=== PATIENT | female | born 1975 | race Caucasian/White ===

== ENCOUNTER 2022-03-16 06:20 | Outpatient (CLI) | payer OTHER ==
[~2022-03-16] VITALS: Ht 162.6 cm; Wt 59.9 kg
[~2022-03-16 06:20] MED LIST: ALPR1TAB2 PO; ASP81TEC PO; CARI350T PO; CRS350T PO; DCS100C PO; DIPH50CA33 PO; EST1.25T PO; HYDR-2890 PO; ORPH100T PO; TAPE100T9; TAPE100T9 PO; ZLP10T PO
[2022-03-21] MEDS ORDERED: DEXT30CA4 PO (15:21)
== END 2022-03-21 15:28 | disposition home or self-care (01) ==
LOC: PREOP 06:20
PROVIDERS: ATTEND Surgery
DX: Z01.818 Encounter for other preprocedural examination (principal)